=== PATIENT | female | born 1950 | race Caucasian/White ===

== ENCOUNTER 2018-05-30 09:38 | Emergency (ER) | payer MEDICARE, OTHER ==
[~2018-05-30] VITALS: Ht 177.8 cm; Wt 98.5 kg
[2018-05-30] MEDS ORDERED: ondansetron 4mg rapidly disintigrating tab PO ONE (11:00)
[2018-05-30] MEDS ORDERED: morphine 4 MG/ML inj SYRINge IM ONE (11:00)
[2018-05-30] MEDS ORDERED: HYDR-4353 PO (11:39)
[2018-05-30 11:57] VITALS: BP 128/70
== END 2018-05-30 11:58 | disposition home or self-care (01) ==
LOC: ER 09:39
DX: S52.122A Displaced fracture of head of left radius, initial encounter for closed fracture (principal); W22.8XXA Striking against or struck by other objects, initial encounter; Y93.89 Activity, other specified; Y92.89 Other specified places as the place of occurrence of the external cause; Y99.8 Other external cause status
CPT/HCPCS: 29105; 73060; 73080; 73090; 99284; J2270